=== PATIENT | male | born 1965 | race Caucasian/White ===

== ENCOUNTER 2017-02-24 09:15 | Emergency (ER) | payer MEDICARE ==
[2017-02-24] MEDS ORDERED: 0.9 % SODIUM CHLORIDE 500 ML IV ONE (09:19)
[2017-02-24 09:32] LABS: BASOPHILS % 0.2 (0.0-1.5); EOSINOPHILS % 0.1 % (0.0-6.8); MEAN CORPUSCULAR HEMOGLOBIN 31.3 pg (28.0-34.0); MEAN CORPUSCULAR VOLUME 98.4 fl (80.0-100.0); MONOCYTES % 7.3 % (0.0-11.0); NEUTROPHILS # 9.4 # k/uL (1.4-7.7)
[2017-02-24 09:52] LABS: eGFR (African) > 60; eGFR (Non-African) > 60
[2017-02-24 10:15] LABS: AMPHETAMINE NON NEGATIVE ng/mL (<1000); BARBITURATES NEGATIVE ng/mL (<200); CANNABINOIDS NEGATIVE ng/mL (<50); COCAINE NEGATIVE ng/mL (<300); METHAMPHETAMINE NON NEGATIVE ng/mL (<1000)
[2017-02-24 10:21] LABS: APPEARANCE,URINE Clear (CLEAR); COLOR,URINE Yellow (YELLOW); OCCULT BLOOD,URINE Negative (NEGATIVE); PH URINE 5.5 (5.0 - 8.0)
[2017-02-24 10:29] LABS: AMORPHOUS SEDIMENT,UR MODERATE (NEGATIVE); SPERM,URINE PRESENT (NEGATIVE)
[2017-02-24] MEDS ORDERED: 0.9 % SODIUM CHLORIDE 1,000 ML IV ONE ×2 (10:34→12:22)
--- NOTE | 2017-02-24 11:00 | ED Physician Documentation ---
General Adult - HISTORIAN Historian: patient - HPI Stated Complaint: altered mental status Chief Complaint: General Adult Onset: hours Timing: still present Severity: moderate Further Comments: yes (Pt is a 51 yo male who was found by law enforcement, naked outdoors in the vicinity of the [facility]. Pt was eating shrubery and had green leafy material in his mouth. Pt was not making sense. On arrival pt continues not making sense. He mentions God and mom and cannot answer any direct questions. He is placed in 4 point restraints, which he does not resist once they are in place and he appears comfortable.) - ROS CONST: other (Pt cannot give ROS) - PAST HX Past History: other (Past hx unknown.) Allergies/Adverse Reactions: Allergies Allergy/AdvReac Type Severity Reaction Status Date / Time No Allergy Information Allergy Verified 02/24/17 12:22 Available Home Medications: Ambulatory Orders Medication Instructions Recorded Unobtainable [Unobtainable] 02/24/17 - SOCIAL HX Smoking History: other (unknown smoking history) - FAMILY HX Family History: No - VITAL SIGNS Vital Signs: Vital Signs Temp Pulse Resp BP Pulse Ox 100.5 F H 114 H 24 154/110 95 02/24/17 09:15 02/24/17 09:15 02/24/17 09:15 02/24/17 09:15 02/24/17 09:15 - REVIEWED ASSESSMENTS Nursing Assessment Reviewed: Yes Vitals Reviewed: Yes Progress - Progress Progress: UDS - non-negative for amphetamines and metamphetamine NS 1 L IVF x 2 Haldol 5 mg IM prior to transfer for combative behavior. Transfer to [facility] Dr. Mcfarland. - EKG/XRAY/CT EKG: NSR (HR=96; normal SC interval; normal axis; low voltage in limb leads.) ED Results Lab/Radiology - Lab Results Lab Results: Lab Results 02/24/17 02/24/17 02/24/17 10:00 10:00 09:25 WBC RBC Hgb Hct MCV MCH MCHC RDW Plt Count Neut % (Auto) Lymph % (Auto) [place] % (Auto) Eos % (Auto) Baso % (Auto) Neut # (Auto) Lymph # (Auto) [place] # (Auto) Eos # (Auto) Baso # (Auto) Reactive Lymphs % Reactive Lymphs # Sodium Potassium Chloride Carbon Dioxide BUN Creatinine Estimated Creat Clear Est GFR ( Amer) Est GFR (Non-Af Amer) Glucose Calcium Total Bilirubin AST ALT Alkaline Phosphatase Total Protein Albumin Urine Color Yellow (YELLOW) Urine Appearance Clear (CLEAR) Urine pH 5.5 (5.0 - 8.0) Ur Specific [place] >=1.030 H (1.010-1.030) Urine Protein 2+ mg/dL H mg/dL (NEGATIVE) Urine Ketones 2+ mg/dL H mg/dL (NEGATIVE) Urine Occult Blood Negative (NEGATIVE) Urine Nitrite Negative (NEGATIVE) Urine Bilirubin Negative (NEGATIVE) Urine Urobilinogen 1.0 Eu Eu (0.2-1.0) Ur Leukocyte Esterase Negative (NEGATIVE) Urine RBC 2-5 H (0-2 HPF) Urine WBC 0-2 (0-5 HPF) Ur Squamous Epith Cells Few (NEG-FEW) Amorphous Sediment Moderate H (NEGATIVE) Urine Bacteria Few H (NEGATIVE) Urine Sperm Present H (NEGATIVE) Urine Glucose 2+ mg/dL H mg/dL (NEGATIVE) Opiates Screen Negative ng/mL ng/mL (<300) Methadone Screen Negative ng/mL ng/mL (<300) Ur Propoxyphene Screen Negative ng/mL ng/mL (<300) POC Urine Barbiturates Negative ng/mL ng/mL (<200) Tricyclic Antidepress Negative ng/mL ng/mL (<300) Amphetamines Screen Non negative ng/mL H ng/mL (<1000) POC Ur Methamphetamine Non negative ng/mL H ng/mL (<1000) Benzodiazepines Screen Negative ng/mL ng/mL (<300) Cocaine Screen Negative ng/mL ng/mL (<300) Marijuana (THC) Screen Negative ng/mL ng/mL (<50) Ethyl Alcohol < 10.0 mg/dL mg/dL (0.0-10.0) 02/24/17 02/24/17 09:25 09:25 WBC 11.40 K/ul K/ul (4.00-12.00) RBC 4.53 M/ul M/ul (3.90-5.20) Hgb 14.2 g/dL g/dL (12.0-18.0) Hct 44.5 % % (37.0-53.0) MCV 98.4 fl fl (80.0-100.0) MCH 31.3 pg pg (28.0-34.0) MCHC 31.8 g/dL g/dL (30.0-36.0) RDW 12.9 % % (11.3-14.3) Plt Count 287 K/mm3 K/mm3 (130-400) Neut % (Auto) 83.2 % H % (39.0-79.0) Lymph % (Auto) 7.6 % L % (16.0-50.0) [place] % (Auto) 7.3 % % (0.0-11.0) Eos % (Auto) 0.1 % % (0.0-6.8) Baso % (Auto) 0.2 (0.0-1.5) Neut # (Auto) 9.4 # k/uL H # k/uL (1.4-7.7) Lymph # (Auto) 0.9 # k/uL # k/uL (0.6-4.0) [place] # (Auto) 0.8 # k/uL # k/uL (0.0-0.9) Eos # (Auto) 0.0 # k/uL # k/uL (0.0-0.6) Baso # (Auto) 0.0 # k/uL # k/uL (0.0-0.5) Reactive Lymphs % 1.6 % % (0.0-5.0) Reactive Lymphs # 0.2 # k/uL # k/uL (0.0-0.8) Sodium 135 mmol/L L mmol/L (136-145) Potassium 3.6 mmol/L mmol/L (3.5-5.1) Chloride 96 mmol/L L mmol/L (98-107) Carbon Dioxide 21 mmol/L L mmol/L (22-30) BUN 13 mg/dL mg/dL (9-20) Creatinine 0.90 mg/dL mg/dL (0.66-1.25) Estimated Creat Clear 91 Est GFR ( Amer) > 60 (60 - ) Est GFR (Non-Af Amer) > 60 (60 - ) Glucose 259 mg/dL H mg/dL (74-106) Calcium 9.2 mg/dL mg/dL (8.4-10.2) Total Bilirubin 0.9 mg/dL mg/dL (0.2-1.3) AST 24 U/L U/L (15-46) ALT 24 U/L U/L (13-69) Alkaline Phosphatase 84 U/L U/L (38-126) Total Protein 7.8 g/dL g/dL (6.3-8.2) Albumin 4.7 g/dL g/dL (3.5-5.0) Urine Color Urine Appearance Urine pH Ur Specific [place] Urine Protein Urine Ketones Urine Occult Blood Urine Nitrite Urine Bilirubin Urine Urobilinogen Ur Leukocyte Esterase Urine RBC Urine WBC Ur Squamous Epith Cells Amorphous Sediment Urine Bacteria Urine Sperm Urine Glucose Opiates Screen Methadone Screen Ur Propoxyphene Screen POC Urine Barbiturates Tricyclic Antidepress Amphetamines Screen POC Ur Methamphetamine Benzodiazepines Screen Cocaine Screen Marijuana (THC) Screen Ethyl Alcohol - Orders Orders: ED Orders Category Date Time Status Apply Restraints 1T Care 02/24/17 09:[address] IV Lock 1T Care 02/24/17 09:19 Active ALCOHOL MEDICAL USE ONLY Stat Lab 02/24/17 09:25 Completed AMPHETAMINES,QUANT,URINE Routine Lab 02/24/17 10:20 Received CBC/PLATELET/DIFF Routine Lab 02/24/17 09:25 Completed CMP Routine Lab 02/24/17 09:25 Completed UDS [DRUG SCREEN URINE MEDICAL ONLY] Routine Lab 02/24/17 10:00 Completed URINALYSIS Routine Lab 02/24/17 10:00 Completed 0.9 % Sodium Chloride [Normal Saline] 1,000 ml Med 02/24/17 10:34 Active IV Q1H 0.9 % Sodium Chloride [Normal Saline] 500 ml Med 02/24/17 09:19 Discontinued IV NOW General Adult Physical Exam - PHYSICAL EXAM GENERAL APPEARANCE: moderate distress EENT: DIANE, other (leafy material in mouth. Pt had been eating shrubery per law enforcement.) NECK: normal inspection, supple RESPIRATORY: no resp distress, chest non-tender, breath sounds normal CVS: reg rate & rhythm, heart sounds normal ABDOMEN: soft, no organomegaly, normal bowel sounds BACK: normal inspection, no CVA tenderness, other (Pt has bandages on buttock as if he were recently given IM meds.) SKIN: other (Pt has bandages on buttock as if he were recently given IM meds.) EXTREMITIES: non-tender, normal range of motion, no evidence of injury NEURO: motor nml, sensation nml, other (disoriented; incoherent speech) Discharge Clincal Impression: Change in mental status, Amphetamine, Methamphetamine abuse Referrals: Primary Doctor,No [Primary Care Provider] - Condition: Stable Disposition: 02 XFER [id number] HOSP Decision to Admit: NO Decision Time: 12:37
[2017-02-24] MEDS ORDERED: HALOPERIDOL LACTATE 5 MG/ML VIAL IM ONE ×2 (13:03)
[2017-02-24 13:27] VITALS: BP 120/84
== END 2017-02-24 13:25 | disposition short-term general hospital (02) ==
LOC: ED 09:15
DX: R41.82 Altered mental status, unspecified (principal); F15.10 Other stimulant abuse, uncomplicated
CPT/HCPCS: 80053; 80320; 80377; 81002; 85025; 93005; J1630; J7030; J7060; 51702; 96361; 96372; 99284; G0480; G0481; S1016